=== PATIENT | female | born 1995 | race Two or more races ===

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

== ENCOUNTER 2018-04-18 17:29 | Emergency (ER) | payer SELFPAY ==
[~2018-04-18] VITALS: Ht 160 cm; Wt 116.0 kg
[2018-04-18] MEDS ORDERED: PREN1TAB60 PO (18:06)
[2018-04-18 18:23] LABS: BASOPHILS # (AUTO) 0.04 x10^3/uL (0-0.1); BASOPHILS % (AUTO) 0 % (0-1); EOSINOPHILS # (AUTO) 0.11 x10^3/uL (0-0.4); EOSINOPHILS % (AUTO) 1 % (1-7); LYMPHOCYTES # (AUTO) 3.42 x10^3/uL (1-3.4); LYMPHOCYTES % (AUTO) 35 % (22-44); MD NO; MEAN CORPUSCULAR HEMOGLOBIN 29.7 pg (27.0-34.8); MEAN CORPUSCULAR VOLUME 87.4 fL (80-100); MEAN PLATELET VOLUME 8.5 fL (7.4-10.4); MONOCYTES # (AUTO) 0.37 x10^3/uL (0.2-0.8); MONOCYTES % (AUTO) 4 % (2-9); NEUTROPHILS # (AUTO) 5.92 x10^3/uL (1.8-6.8); NEUTROPHILS % (AUTO) 60 % (42-75); PLATELET COUNT 280 x10^3/uL (130-400); RED BLOOD COUNT 4.26 x10^6/uL (3.82-5.3); RED CELL DISTRIBUTION WIDTH 14.2 % (9.6-15.2)
[2018-04-18] MEDS ORDERED: ONDANSETRON ODT 4 MG PO ONE (18:30)
[2018-04-18 18:32] LABS: ALBUMIN 3.5 g/dL (3.4-5.0); ANION GAP 11 mmol/L (5-15); CALCIUM 8.1 mg/dL (8.5-10.1); CHLORIDE 108 mmol/L (98-107); CREATININE 0.58 mg/dL (0.55-1.02)
[2018-04-18] MEDS ORDERED: ONDANSETRON ODT 4 MG ONE (18:33)
[2018-04-18 19:24] LABS: CULTURE INDICATED? NO; MICROSCOPIC NOT IND
[2018-04-18 19:53] VITALS: BP 134/67
== END 2018-04-18 19:54 | disposition home or self-care (01) ==
LOC: ED 19:43
DX: O20.9 Hemorrhage in early pregnancy, unspecified (principal); Z3A.01 Less than 8 weeks gestation of pregnancy
CPT/HCPCS: 36415; 76801; 80048; 81003; 82040; 84702; 85025; 86901; 99285; Q0162

== ENCOUNTER 2018-05-31 11:47 | Emergency (ER) | payer OTHER ==
[~2018-05-31] VITALS: Ht 162.6 cm; Wt 114.0 kg
[~2018-05-31 11:47] MED LIST: PREN1TAB60 PO
[2018-05-31 11:55] VITALS: BP 111/81
[2018-05-31] MEDS ORDERED: ACETAMINOPHEN 500 MG TABLET ONE (12:15)
[2018-05-31] MEDS ORDERED: ACETAMINOPHEN 500 MG TABLET PO ONE (12:30)
== END 2018-05-31 13:41 | disposition home or self-care (01) ==
LOC: ED 13:35
DX: O26.892 Other specified pregnancy related conditions, second trimester (principal); Z3A.12 12 weeks gestation of pregnancy; S16.1XXA Strain of muscle, fascia and tendon at neck level, initial encounter; S29.012A Strain of muscle and tendon of back wall of thorax, initial encounter; S39.012A Strain of muscle, fascia and tendon of lower back, initial encounter; V49.49XA Driver injured in collision with other motor vehicles in traffic accident, initial encounter; Y93.89 Activity, other specified; Y92.410 Unspecified street and highway as the place of occurrence of the external cause; Y99.8 Other external cause status
CPT/HCPCS: 72020; 72050; 72072; 99283

== ENCOUNTER 2018-07-01 15:05 | Emergency (ER) | payer MEDICAID ==
[~2018-07-01] VITALS: Ht 162.6 cm; Wt 115.7 kg
--- NOTE | 2018-07-01 15:48 | NUR ---
PT IN [place]. SPOKE C US STAFF, THEY WILL RETURN PT TO RM 15 UPON RETURN TO ED.
--- NOTE | 2018-07-01 15:52 | NUR ---
PT TO ROOM. PT AMBULATORY WITH STEADY GAIT TO BATHROOM.
--- NOTE | 2018-07-01 16:07 | NUR ---
23 Y/O FEMALE PRESENTS TO ED WITH C/O ABD CRAMPING/VB. "I'M 23 WEEKS . I'VE BEEN CRAMPING LIGHTLY THE MAJORITY OF MY . IT'S GOTTEN WORSE. TODAY I NOTICED SOME LIGHT BLOOD ON THE TOILET PAPER WHEN I WIPED TODAY. I PUT ON A PAD, JUST IN CASE, AND THERE WAS BARLEY ANYTHING, JUST A FEW MORE SPOTS. TODAY IS THE FIRST DAY WITH THE SPOTTING. BUT THERE ISN'T ANYMORE BLOOD. I NOTICED SOME PAIN ABOVE MY UTERUS AREA. I'VE HAD 2 MISCARRIAGES BEFORE. SO I'M JUST WORRIED. I CAN'T SEE MY OB UNTIL NEXT TUESDAY." PT PLACED ON CONTPULSE OX,NIBP. NO C/O N/V/D, TRAUMA, SYNCOPE, CP, SOB.
[2018-07-01 16:21] LABS: BASOPHILS # (AUTO) 0.03 x10^3/uL (0-0.1); BASOPHILS % (AUTO) 0 % (0-1); EOSINOPHILS # (AUTO) 0.18 x10^3/uL (0-0.4); EOSINOPHILS % (AUTO) 2 % (1-7); LYMPHOCYTES % (AUTO) 28 % (22-44); MD NO; MEAN CORPUSCULAR HEMOGLOBIN 31.4 pg (27.0-34.8); MEAN CORPUSCULAR HGB CONC 34.5 g/dL (32.4-35.8); MEAN PLATELET VOLUME 8.8 fL (7.4-10.4); MONOCYTES # (AUTO) 0.33 x10^3/uL (0.2-0.8); MONOCYTES % (AUTO) 3 % (2-9); NEUTROPHILS # (AUTO) 7.13 x10^3/uL (1.8-6.8); NEUTROPHILS % (AUTO) 68 % (42-75); PLATELET COUNT 253 x10^3/uL (130-400); RED BLOOD COUNT 3.78 x10^6/uL (3.82-5.3); RED CELL DISTRIBUTION WIDTH 15.4 % (9.6-15.2)
[2018-07-01 16:23] LABS: ALBUMIN 3.1 g/dL (3.4-5.0); ANION GAP 8 mmol/L (5-15); CALCIUM 9.2 mg/dL (8.5-10.1); CHLORIDE 106 mmol/L (98-107); CREATININE 0.48 mg/dL (0.55-1.02)
[2018-07-01 16:30] LABS: MICROSCOPIC INDICATED
[2018-07-01 16:38] LABS: CULTURE INDICATED? YES
[2018-07-01 16:47] VITALS: BP 116/57
--- NOTE | 2018-07-01 16:47 | NUR ---
PT RESTING ON GURNEY. NO ACUTE DISTRESS NOTED. NO NEEDS REQUESTED AT THIS TIME. SIGNIFICANT OTHER BEDSIDE.
--- NOTE | 2018-07-01 17:39 | NUR ---
Patient given discharge instructions and they have confirmed that they understand the instructions. Patient ambulatory with steady gait.
== END 2018-07-01 17:40 | disposition home or self-care (01) ==
LOC: ED 16:05
DX: O20.0 Threatened abortion (principal); Z3A.17 17 weeks gestation of pregnancy
CPT/HCPCS: 36415; 76815; 80048; 81001; 82040; 84702; 85025; 86901; 87086; 99284

== ENCOUNTER 2019-07-31 21:41 | Emergency (ER) | payer MEDICAID ==
[~2019-07-31] VITALS: Ht 162.6 cm; Wt 114.3 kg
[2019-07-31 22:47] LABS: CULTURE INDICATED? YES; MICROSCOPIC INDICATED
[2019-07-31] MEDS ORDERED: SODIUM CHLORIDE FLUSH 10ML SYR IVF ONE (23:30)
[2019-07-31] MEDS ORDERED: MORPHINE SULFATE 4 MG/ML, 1ML IVPush PRN (23:30)
[2019-07-31] MEDS ORDERED: ONDANSETRON 2MG/ML, 2ML IVPush ONE (23:30)
[2019-07-31] MEDS ORDERED: ONDANSETRON 2MG/ML, 2ML ONE (23:36)
[2019-07-31] MEDS ORDERED: MORPHINE SULFATE 4 MG/ML, 1ML ONE (23:36)
[2019-07-31 23:41] VITALS: BP 134/69
[2019-07-31 23:59] LABS: BASOPHILS # (AUTO) 0.04 x10^3/uL (0-0.1); BASOPHILS % (AUTO) 0 % (0-1); EOSINOPHILS # (AUTO) 0.17 x10^3/uL (0-0.4); EOSINOPHILS % (AUTO) 2 % (1-7); LYMPHOCYTES # (AUTO) 2.01 x10^3/uL (1-3.4); LYMPHOCYTES % (AUTO) 21 % (22-44); MD NO; MEAN CORPUSCULAR HEMOGLOBIN 28.1 pg (27.0-34.8); MEAN CORPUSCULAR HGB CONC 33.2 g/dL (32.4-35.8); MEAN CORPUSCULAR VOLUME 84.7 fL (80-100); MEAN PLATELET VOLUME 8.5 fL (7.4-10.4); MONOCYTES # (AUTO) 0.27 x10^3/uL (0.2-0.8); MONOCYTES % (AUTO) 3 % (2-9); NEUTROPHILS # (AUTO) 7.31 x10^3/uL (1.8-6.8); NEUTROPHILS % (AUTO) 75 % (42-75); PLATELET COUNT 255 x10^3/uL (130-400); RED BLOOD COUNT 4.14 x10^6/uL (3.82-5.3); RED CELL DISTRIBUTION WIDTH 14.9 % (9.6-15.2)
--- NOTE | 2019-08-01 00:08 | NUR ---
CT PENDING NEGATIVE BETA.
[2019-08-01 00:12] LABS: ALANINE AMINOTRANSFERASE 230 U/L (12-78); ALBUMIN 3.1 g/dL (3.4-5.0); ANION GAP 7 mmol/L (5-15); CALCIUM 8.2 mg/dL (8.5-10.1); CHLORIDE 108 mmol/L (98-107); CREATININE 0.71 mg/dL (0.55-1.02)
[2019-08-01 00:17] LABS: ALKALINE PHOSPHATASE 43 U/L (45-117); BILIRUBIN,TOTAL 0.2 mg/dL (0.2-1.0); TOTAL PROTEIN 7.7 g/dL (6.4-8.2)
--- NOTE | 2019-08-01 04:05 | NUR ---
see paper charting for downtime documentation
== END 2019-08-01 04:07 | disposition home or self-care (01) ==
LOC: ED 08-01 00:05
DX: N10 Acute pyelonephritis (principal); B19.10 Unspecified viral hepatitis B without hepatic coma
CPT/HCPCS: 36415; 74176; 80053; 81001; 83690; 84703; 85025; 87086; 96374; 96375; 99284; J2270; J2405